=== PATIENT | female | born 1975 | race Caucasian/White ===

== ENCOUNTER 2020-09-26 07:07 | Outpatient (CLI) | payer OTHER, SELFPAY ==
--- NOTE | 2020-09-26 07:19 | MM_ITS ---
WS: [id number] Bilateral screening digital mammogram, 09/26/2020 Clinical Data: SCREENING Comparison: 09/14/2017, 12/04/2012, 11/24/2012, 05/18/2004. Findings: The breast parenchymal pattern shows the glandular tissue No spiculated masses or clustered calcifica tions are seen. There are no secondary signs of carcinoma. MM/[place] [address] Impression: 1. Negative bilateral mammogram unchanged. 2. Recommend annual screening mammograms. BIRADS: 1-Negative FOLLOW UP: 1 Year Follow-up The CAD abstract checker was used.
== END 2020-09-26 07:08 | disposition home or self-care (01) ==
LOC: RADSHAW 07:10
PROVIDERS: Family Provider Family Medicine; PCP Family Medicine; Visit Provider Family Medicine
DX: Z12.31 Encounter for screening mammogram for malignant neoplasm of breast (principal)
CPT/HCPCS: 77067

== ENCOUNTER 2022-05-21 07:21 | Outpatient (CLI) | payer OTHER, SELFPAY ==
--- NOTE | 2022-05-21 08:00 | USCV_ITS ---
Yaquelin Maldonado Age: 46 Gender: F : 1975 Exam Date: 05/21/2022 08:09 Ordering Phys: Jimbo Dior DO Technologist: Ashlie Pickens Exam Location: [facility] [place] Indication: Tachycardia BP: 130 / 78 HR: 66 Rhythm: Sinus Technical Quality: Adequate MEASUREMENTS (Male / Female) Normal Values 2D ECHO LV Diastolic Diameter PLAX 4.0 cm 4.2 - 5.9 / 3.9 - 5.3 cm LV Systolic Diameter PLAX 3.0 cm IVS Diastolic Thickness 1.1 cm 0.6 - 1.0 / 0.6 - 0.9 cm IVS Systolic Thickness 1.3 cm LVPW Diastolic Thickness 1.3 cm 0.6 - 1.0 / 0.6 - 0.9 cm LVPW Systolic Thickness 1.3 cm LVOT Diameter 2.0 cm LV Ejection Fraction 2D Teich 49.9 % LV Ejection Fraction MOD 2C 76.5 % LV Ejection Fraction 2C AL 78.9 % LA Diameter 3.0 cm LA Width 2.7 cm LA Height 5.0 cm RA Width 2.6 cm RA Height 3.8 cm Aorta at Sinotubular Diameter 2.2 cm IVC Diameter 1.1 cm DOPPLER AV Peak Velocity 97.0 cm/s LVOT Peak Velocity 68.0 cm/s AV Area Cont Eq vti 2.5 cm squared AV Area Cont Eq pk 2.3 cm squared MV Peak Velocity 96.0 cm/s MV Area PHT 2.8 cm squared Mitral E to A Ratio 1.3 MV E' Velocity 74.0 cm/s TR Peak Velocity 79.0 cm/s TR Peak Gradient 2.5 mmHg Right Atrial Pressure 3.0 mmHg Pulmonary Artery Systolic Pressu 5.5 mmHg PV Peak Velocity 54.0 cm/s RV Acceleration Time 0.2 s FINDINGS Left Ventricle Normal left ventricular size, systolic function and wall thickness, with no regional wall motion abnormalities. Normal left ventricular wall thickness. Normal diastolic filling pattern. Right Ventricle The right ventricle is normal in size and function. Right Atrium The right atrium is normal in size. Left Atrium The left atrium is normal in size. Mitral Valve Structurally normal mitral valve without significant stenosis or prolapse. There is no mitral regurgitation. Aortic Valve Structurally normal aortic valve without significant sclerosis or stenosis. There is no aortic regurgitation. Tricuspid Valve Structurally normal tricuspid valve without significant stenosis or regurgitation. Pulmonary artery systolic pressure is normal. Pulmonic Valve Structurally normal pulmonic valve without significant stenosis. There is no pulmonic regurgitation. Pericardium Normal pericardium without effusion. Aorta Normal ascending aorta dimension. IVC The inferior vena cava pulmonary and hepatic veins appear normal. CONCLUSIONS Normal transthoracic echocardiogram. Dr. Eyal Ahn MD (Electronically Signed) Final Date: 21 May 2022 14:14 S
== END 2022-05-21 07:22 | disposition home or self-care (01) ==
PROVIDERS: PCP Family Medicine; Visit Provider Electrodiagnostic Medicine
DX: R00.0 Tachycardia, unspecified (principal)
CPT/HCPCS: 93306

== ENCOUNTER → 2023-09-02 11:26 | Outpatient (BNVA) | payer OTHER, SELFPAY | PROVIDERS: PCP Electrodiagnostic Medicine; Visit Provider Nurse Practitioner Family | DX: I47.10 Supraventricular tachycardia, unspecified (principal); I10 Essential (primary) hypertension | CPT/HCPCS: 99213 ==

== ENCOUNTER 2024-07-12 09:37 | Outpatient (CLI) | payer OTHER, SELFPAY ==
[2024-07-12 09:39] VITALS: BMI 37.9
--- NOTE | 2024-07-12 09:39 | ECG_ITS ---
[facility] Test Date: 2024-07-12 Pat Name: Yaquelin Maldonado Department: Room: Gender: Female Search Planner: : 1975 Requested By: Preston Garibay Order Number: [id number] Reading MD: Interpretive Statements Lung unchanged pre/post procedure; Intraprocedure shortess of breath; Symptoms resoled by discharge [email or web address]
--- NOTE | 2024-07-12 09:40 | NMCV_ITS ---
NM yo perf SPECT r/s* [id number] Yaquelin Maldonado Age: 48 Gender: F : 1975 Exam Date: 07/12/2024 10:38 Ordering Phys: Preston Garibay M.D ([email or web address]) Technologist: TOAN Littlejohn Exam Location: [facility] Indications: cp STRESS TEST Please see separate stress test report in [facility] for full findings IMAGE PROTOCOL Rest/Stress 1 Exercise Day Radiopharmaceutical Dose (mCi) Administration Site Administered by Rest: Tc-99m 10.8 IV TOAN Segura Sestamibi Stress:Tc-99m 32.8 IV TOAN Littlejohn Sestamibhupendra Rest: 12-Jul-2024 60 Discovery 630 Stress: 12-Jul-2024 30 Discovery 630 Radiopharmaceutical was injected at 92 % maximum heart rate. Images obtained in supine and prone position. SPECT RESULTS Technical Quality: Good Raw Data Analysis: Normal Image Corrections: No attenuation or motion correction applied Summed Stress Score: 1 Summed Rest Score: 12 Summed Difference Score: 0 PERFUSION FINDINGS Large area of moderate to severe perfusion defect noted in mid to distal inferior and basal to distal inferolateral wall on the rest images which improved significantly over stress images in the absence of wall motion abnormality is suggestive of attenuation artifact FUNCTIONAL RESULTS (calculated via Gated SPECT) Stress Image LV EF (%): 75 Stress EDV (mL):59 TID: 0.91 Stress ESV (mL):15 FUNCTIONAL FINDINGS: There is normal left ventricular systolic function. IMPRESSIONS Myocardial perfusion imaging is not suggestive of ischemia. Jeremy Obrien MD (Electronically Signed) Final Date: 13 July 2024 17:51 S
[2024-07-12 11:44] VITALS: BP 124/79; PULSE 98
== END 2024-07-12 09:38 | disposition home or self-care (01) ==
PROVIDERS: PCP Electrodiagnostic Medicine; Visit Provider Internal Medicine
DX: R07.9 Chest pain, unspecified (principal); R06.02 Shortness of breath; R94.39 Abnormal result of other cardiovascular function study; R93.1 Abnormal findings on diagnostic imaging of heart and coronary circulation
CPT/HCPCS: 78452; 93017; A9500

== ENCOUNTER 2025-02-21 09:08 | Outpatient (CLI) | payer OTHER, SELFPAY ==
--- NOTE | 2025-02-21 09:20 | MM_ITS ---
WS: [id number] BILATERAL 3D TOMOSYNTHESIS DIGITAL SCREENING MAMMOGRAPHY WITH CAD CLINICAL INFORMATION: SCREENING HISTORY: Screening mammogram. No current complaints. COMPARISON: 2020 TECHNIQUE: Bilateral CC and MLO views. FINDINGS: Scattered fibroglandular densities bilaterally. No suspicious focal mass, asymmetry, calcifications, or architectural distortion. No evidence of malignancy. Stable volume loss RIGHT breast. MM/MM scr tomosynthesis [id number] IMPRESSION: DENSITY: There are scattered areas of fibroglandular density. BI-RADS: 2 - Benign. FOLLOW UP: 1 Year Follow-up Recommend return to annual screening mammography.
== END 2025-02-21 09:09 | disposition home or self-care (01) ==
LOC: MOBLMAM 09:10
PROVIDERS: PCP Electrodiagnostic Medicine; Visit Provider Electrodiagnostic Medicine
DX: Z12.31 Encounter for screening mammogram for malignant neoplasm of breast (principal); R92.323 Mammographic fibroglandular density, bilateral breasts; N64.89 Other specified disorders of breast
CPT/HCPCS: 77063; 77067